=== PATIENT | female | born 1925 | race Caucasian/White ===

== ENCOUNTER → 2017-01-02 12:32 | Outpatient (CLI) | payer MEDICARE, OTHER ==
[2016-06-19 07:31] VITALS: BMI 22.9
[~2017-01-02 12:32] MED LIST: ASPIRIN325 MG PO; CALCIUM 500 + D1 TAB PO; FISH OIL 1,0001 CA1; GABAPENTIN100 MG PO; HYDROCODON-ACE1 EAC7 PO; HYDROCODONE-APA1 TAB PO; METAMUCIL1042 GM PO; MICARDIS HCT 401 TAB PO; MICARDIS20 MG PO; MULTIPLE VITAMI1 TA1 PO; OMEPRAZOLE20 M1 PO; PRILOSEC10 MG; VITAMIN B-1000 MCG/M IM; XALATAN 0.0052.5 ML EACH EYE; ZETIA10 MG PO; ZOCOR40 MG PO
== END | disposition home or self-care (01) ==
LOC: D.CT 12:32
DX: R59.0 Localized enlarged lymph nodes (principal)

== ENCOUNTER 2017-01-18 06:34 | Day surgery (SDC) | payer MEDICARE, OTHER ==
[~2017-01-18] VITALS: Ht 157.5 cm; Wt 58.5 kg
[~2017-01-18 06:34] MED LIST changes: -HYDROCODON-ACE1 EAC7 PO; -HYDROCODONE-APA1 TAB PO
[2017-01-18 07:24] LABS: BASOPHILS 0.1 % (0.0-2.0); EOSINOPHILS 0.9 % (0-7); HEMATOCRIT 34.9 % (36.0-48.0); HEMOGLOBIN 11.4 g/dL (12-16); IMMATURE GRANULOCYTES 0.1 % (0-5); LYMPHOCYTES 17.3 % (15-50); MCH 32.2 pg (26.0-34.0); MCHC 32.7 g/dL (31.0-37.0); MCV 98.6 fL (80.0-100.0); MEAN PLATELET VOLUME 9.3 fL (7.4-10.4); MONOCYTES 14.1 % (2-11); NEUTROPHILS 67.5 % (40-80); PLATELET COUNT 139 10x3/uL (130-400); RBC 3.54 10x6/uL (4.00-5.40)
[2017-01-18 07:31] LABS: ANION GAP 11.2 mmol/L (8-16); CALCIUM 9.1 mg/dL (8.5-10.1); CARBON DIOXIDE 30.5 mmol/L (21.0-32.0); CREATININE - SERUM 0.8 mg/dL (0.6-1.3); POTASSIUM - SERUM 3.7 mmol/L (3.5-5.1)
[2017-01-18 07:44] VITALS: BP 115/55; Ht 157.5 cm; Wt 58.5 kg
[2017-01-18 07:49] LABS: INR 0.97 (0.85-1.17); PROTIME 12.7 SECONDS (11.6-15.0)
[2017-01-18] MEDS ORDERED: HYDROCODONE-APA1 TAB PO (10:03)
--- NOTE | 2017-01-18 10:16 | NUR ---
LMA IN AIRWAY ON ADMIT TO RR
--- NOTE | 2017-02-01 13:21 | OP ---
PATIENT NAME: CHRISTINE STEVENS MEDICAL RECORD: [id number] :[birth year] LOCATION:D.OPS ADMISSION DATE: SURGEON: EDSON SEPULVEDA MD DATE OF OPERATION: 01/18/2017 PREOPERATIVE DIAGNOSES: 1. Diffuse lymphadenopathy. 2. Hypertension. 3. Hypercholesterolemia. POSTOPERATIVE DIAGNOSES: 1. Diffuse lymphadenopathy 2. Hypertension. 3. Hypercholesterolemia. PROCEDURE: Right axillary excisional lymph node biopsy. SURGEON: Edson Sepulveda MD. REPORT OF PROCEDURE: The patient's right axilla was prepped and draped in sterile fashion. A transverse incision was made overlying the large axillary lymph node. Electrocautery was used to dissect through the subcutaneous tissues and then I bluntly came around the large lymph node that was necrotic and there was actually spillage of some contents during manipulation. We were eventually able to remove the largest lymph node. There were a few vessels adherent to this and these were clamped and tied off with 3-0 silk. Once the mass was completely excised, it was sent off to pathology for permanent specimen. Any bleeding from the area was then treated with electrocautery. We then instilled Michelle into the wound and at that point, we saw no sign of any active bleeding. The wound had been irrigated out prior to this. At this point, the subcutaneous tissues were reapproximated with interrupted 3-0 Vicryl and the skin was closed with running subcutaneous 5-0 Monocryl. A 10 mL of 0.25% Marcaine with epinephrine were infused into the surrounding tissues and the wound was dressed appropriately. COMPLICATIONS: None. CONDITION: Stable. ANESTHESIA: General endotracheal and local. BLOOD LOSS: 30 mL. TRANSINT:[id number] Voice Confirmation ID: [id number] DOCUMENT ID: [id number] EDSON SEPULVEDA MD at 1321 CC: TAM PERALTA DO [id number] DICTATION DATE: 01/18/17 1007 DIRECTOR GENERAL: 01/18/17 1756 [facility] 01/18/[address] [address]
== END 2017-01-18 12:10 | disposition home or self-care (01) ==
LOC: D.OPS 06:34 → D.PAN 09:00 → D.OPS 12:10 → D.PAN 13:15
PROVIDERS: Anesthesiology; Surgery
DX: C85.94 Non-Hodgkin lymphoma, unspecified, lymph nodes of axilla and upper limb (principal); I10 Essential (primary) hypertension; E78.00 Pure hypercholesterolemia, unspecified

== ENCOUNTER → 2017-02-06 08:29 | Outpatient (CLI) | payer MEDICARE, OTHER ==
[2017-01-18 07:44] VITALS: BMI 23.6
[~2017-02-06 08:29] MED LIST changes: +HYDROCODON-ACE1 EAC7 PO; +HYDROCODONE-APA1 TAB PO
--- NOTE | 2017-02-15 12:24 | EC ---
PATIENT:CHRISTINE STEVENS DATE OF SERVICE: 02/06/17 SEX: F MEDICAL RECORD: [id number] DATE OF : [birth year] LOCATION:[facility] AGE OF PATIENT: 89 ADMISSION DATE: 02/06/17 REFERRING PHYSICIAN: INTERPRETING PHYSICIAN: BLAYNE MAHAJAN M.D. ECHOCARDIOGRAM REPORT ECHO CHARGES 4 ECHO COMPLETE CLINICAL DIAGNOSIS: LYMPHOMA ECHOCARDIOGRAPHIC MEASUREMENTS (adult normal given) AC root (d.<3.7cm) 3.2 LV Septum d (<1.2 cm> 1.4 Valve Excursion 1.5 LV Septum (systole) 1.9 Left Atria (s.<4.0cm> 3.0 LVPW d(<1.2cm) 1.2 RV (d.<2.3cm) 2.5 LVPW (sytole) 1.9 LV diastole(<5.6CM) 5.4 MV E-F(>70mm/sec) LV systole 3.0 LVOT Diameter 1.7 MV exc.(>10mm) Est.ejection fraction (50-75%) Pericardial Effusion N DOPPLER: LVIT A 93.0 E 58.0 LA RVSP 52.3 LVOT 109 AOP1/2T 393.0 Asc. Ao 163 RVOT 74.0 RA PA 87.0 AV Gradient Peak 11.0 AV Mean 4.8 AV Area 1.7 MV Gradient Peak 4.0 MV Mean 1.4 MV Area COMMENTS: Plater Barrel: Ni GUANOE Asbestos Worker:1 Dr. Aguilera TAPE# PACS DATE OF SERVICE: 02/06/2017 REFERRING PHYSICIAN: Blayne Joiner MD. INDICATION: Lymphoma. DESCRIPTION: Left ventricle demonstrates left ventricular hypertrophy. No regional wall motion abnormalities are noted. Estimated ejection fraction is 55%. Mitral valve is structurally normal. There is moderate regurgitation noted. Left atrium is normal in size. The aortic valve is trileaflet. There ECHOCARDIOGRAM REPORT [id number] CHRISITNE STEVENS is mild insufficiency noted, but no evidence of stenosis. Right ventricle is mildly dilated. Tricuspid valve is structurally normal. There is mild regurgitation seen. Right ventricular systolic pressure is elevated at 52 mmHg. There is no pericardial effusion seen. IMPRESSION: 1. Left ventricular hypertrophy with preserved ejection fraction of 55%. 2. Moderate mitral regurgitation. 3. Moderate tricuspid regurgitation with elevated pulmonary pressures. TRANSINT:[id number] Voice Confirmation ID: [id number] DOCUMENT ID: [id number] BLAYNE MAHAJAN M.D. at 1224 CC: [id number] DICTATION DATE: 02/06/17 1628 PUBLIC HEALTH INFORMATICIAN: 02/07/17 0201 DEP CLI 02/06/17 [place] [id number] [place] [id number]
== END | disposition home or self-care (01) ==
LOC: D.ECHO 08:29
DX: C85.14 Unspecified B-cell lymphoma, lymph nodes of axilla and upper limb (principal)

== ENCOUNTER 2017-02-08 07:04 | Day surgery (SDC) | payer MEDICARE, OTHER ==
[~2017-02-08] VITALS: Ht 157.5 cm; Wt 57.2 kg
--- NOTE | ~2017-02-08 | OP ---
PATIENT NAME: CHRISTINE STEVENS MEDICAL RECORD: [id number] :[birth year] LOCATION:[facility] ADMISSION DATE: SURGEON: EDSON SEPULVEDA MD DATE OF OPERATION: 02/08/2017 PREOPERATIVE DIAGNOSES: 1. Lymphoma. 2. Hypertension. 3. Hypercholesterolemia. 4. Osteoporosis. POSTOPERATIVE DIAGNOSES: 1. Lymphoma. 2. Hypertension. 3. Hypercholesterolemia. 4. Osteoporosis. PROCEDURE: 1. Left subclavian vein port placement. 2. Fluoroscopic interpretation. SURGEON: Edson Sepulveda MD. REPORT OF PROCEDURE: The patient's left chest was prepped and draped in sterile fashion. A needle was used to cannulate the left subclavian vein. The guidewire was advanced with ease. Fluoro was then used to note that the wire was in good position in the venous system. A skin incision was made on the left lateral superior chest and a subcutaneous pouch was made overlying the pectoral fascia. The catheter was tunneled between this pouch and the wire exit site. The port was then sutured to the pectoral fascia using interrupted 2-0 Prolenes times 2. The catheter was cut with a beveled tip at 22 cm. The dilator trocar device was placed over the wire and the wire and dilator were removed. The catheter tip was advanced through the trocar with ease. The catheter tip rest in good position in the superior vena cava. The catheter aspirated nonpulsatile dark blood and flushed easily with heparinized saline. The subcutaneous tissues were then reapproximated with interrupted 3-0 Vicryl and the skin was closed with running subcutaneous 5-0 Monocryl. COMPLICATIONS: None. CONDITION: Stable. ANESTHESIA: General endotracheal. BLOOD LOSS: Minimal. TRANSINT:[id number] Voice Confirmation ID: [id number] DOCUMENT ID: [id number] OPERATIVE REPORT [id number] CHRISTINE STEVENS EDSON SEPULVEDA MD CC: TAM PERALTA DO and LINDA MCKEON MD [id number] DICTATION DATE: 02/08/17 1230 DAILY SALES AUDIT CLERK: 02/08/17 1637 [facility] 02/08/17 [facility] [address] [place] [address]
[~2017-02-08 07:04] MED LIST changes: -HYDROCODON-ACE1 EAC7 PO
[2017-02-08 08:05] LABS: INR 0.92 (0.85-1.17); PROTIME 12.2 SECONDS (11.6-15.0)
[2017-02-08 08:06] LABS: APTT 29.3 SECONDS (22.8-39.4)
[2017-02-08 08:09] LABS: ANION GAP 11.8 mmol/L (8-16); CALCIUM 8.9 mg/dL (8.5-10.1); CARBON DIOXIDE 28.9 mmol/L (21.0-32.0); CREATININE - SERUM 0.8 mg/dL (0.6-1.3); POTASSIUM - SERUM 3.7 mmol/L (3.5-5.1)
[2017-02-08 08:20] LABS: HEMATOCRIT 30.3 % (36.0-48.0); MCH 32.2 pg (26.0-34.0); MCV 97.4 fL (80.0-100.0); MEAN PLATELET VOLUME 9.7 fL (7.4-10.4); PLATELET COUNT 87 10x3/uL (130-400); RBC 3.11 10x6/uL (4.00-5.40); RDW 14.1 % (11.5-14.5); WBC 20.3 10x3/uL (4.8-10.8)
[2017-02-08 08:32] LABS: MONOCYTES 1 % (2-11); NEUTROPHILS 83 % (40-80)
[2017-02-08 08:33] LABS: PLATELET ESTIMATE DECREASED
[2017-02-08 08:41] VITALS: BP 117/53; Ht 157.5 cm; Wt 57.2 kg
[2017-02-08] MEDS ORDERED: HYDROCODON-ACE1 EAC7 PO (12:27)
--- NOTE | 2017-02-08 12:58 | NUR ---
1255 BACK FROM PORT PLECEMENT LEFT CHEST DRESSING C/D/I ICE BACK ON SCANT BLOOD ON DRESSING.
--- NOTE | 2017-02-08 13:40 | NUR ---
1325 TOLERATING FULL LIQUIDS SIPPING ON COFFEE, NO COS OF NAUSEA OR PAIN.
--- NOTE | 2017-02-08 13:53 | NUR ---
1350 WENT OVER DISCHARGE INSTRUCTIONS SCRIPT AND POWER PORT INFORMATION,VERBALLY UNDERSTANDS. IV DCD CATHETER INTACT. NO CHANGE IN DRESSING TO LT CHEST SITE. UP TO THE BR AND VOIDED.
--- NOTE | 2017-02-08 14:00 | NUR ---
1400 DISCHARGED TO HOME VIA W/C ACCOMPANIED WITH FRIEND.
== END 2017-02-08 14:00 | disposition home or self-care (01) ==
LOC: D.PAN 07:04 → D.OPS 09:30 → D.PAN 09:30 → D.OPS 09:45 → D.PAN 14:00
PROVIDERS: Anesthesiology
DX: C85.90 Non-Hodgkin lymphoma, unspecified, unspecified site (principal); I10 Essential (primary) hypertension; K21.9 Gastro-esophageal reflux disease without esophagitis; M19.90 Unspecified osteoarthritis, unspecified site

== ENCOUNTER → 2017-06-04 18:40 | Outpatient (CLI) | payer MEDICARE, OTHER ==
[2017-02-08 08:41] VITALS: BMI 23.1
[~2017-06-04 18:40] MED LIST changes: +HYDROCODON-ACE1 EAC7 PO
[2017-06-04 19:19] LABS: APPEARANCE HAZY (CLEAR); BILIRUBIN NEGATIVE (NEGATIVE); COLOR YELLOW (YELLOW); GLUCOSE NEGATIVE (NEGATIVE); KETONE NEGATIVE (NEGATIVE); LEUKOCYTE ESTERASE 2+ (NEGATIVE); NITRITE NEGATIVE (NEGATIVE); PROTEIN NEGATIVE (NEGATIVE); UROBILINOGEN NORMAL (NORMAL)
[2017-06-04 19:20] LABS: BACTERIA MANY /hpf (NONE SEEN); EPITHELIAL CELLS 0-5 /hpf (0-5); RED CELLS - URINE 0-5 /hpf (0-5); WHITE CELLS - URINE >50 /hpf (0-5)
== END | disposition home or self-care (01) ==
LOC: D.LABREF 18:40
PROVIDERS: Urology
DX: N39.0 Urinary tract infection, site not specified (principal)

== ENCOUNTER → 2017-06-14 09:04 | Outpatient (CLI) | payer MEDICARE, OTHER ==
[2017-02-08 08:41] VITALS: BMI 23.1
== END | disposition home or self-care (01) ==
LOC: D.OPS 09:04 → D.RAD 11:00 → D.OPS 11:00
DX: M16.0 Bilateral primary osteoarthritis of hip (principal)

== ENCOUNTER → 2017-06-24 19:14 | Outpatient (CLI) | payer MEDICARE, OTHER ==
[2017-02-08 08:41] VITALS: BMI 23.1
[2017-06-24 20:30] LABS: APPEARANCE CLEAR (CLEAR); BACTERIA MODERATE /hpf (NONE SEEN); BILIRUBIN NEGATIVE (NEGATIVE); COLOR YELLOW (YELLOW); EPITHELIAL CELLS 0-5 /hpf (0-5); GLUCOSE NEGATIVE (NEGATIVE); KETONE NEGATIVE (NEGATIVE); LEUKOCYTE ESTERASE 1+ (NEGATIVE); NITRITE NEGATIVE (NEGATIVE); PROTEIN NEGATIVE (NEGATIVE); RED CELLS - URINE 0-5 /hpf (0-5); UROBILINOGEN NORMAL (NORMAL)
== END | disposition home or self-care (01) ==
LOC: D.LABREF 19:14
PROVIDERS: Urology
DX: N39.0 Urinary tract infection, site not specified (principal)